=== PATIENT | male | born 1955 | race Caucasian/White ===

== ENCOUNTER 2022-02-05 06:47 | Emergency (ER) | payer OTHER ==
[2022-02-05 07:20] VITALS: BP 153/99; PULSE 81; RESP 19; TEMP 97.6; BMI 29.1
[2022-02-05] MEDS ORDERED: LIDOCAINE 5% TOPICAL PATCH TP ONE (08:35)
[2022-02-05] MEDS ORDERED: LIDOCAINE 5% TOPICAL PATCH ONE (08:53)
[2022-02-05] MEDS ORDERED: diazePAM 5 MG TABLET PO ONE (09:19)
[2022-02-05] MEDS ORDERED: DEXAMETHASONE SOD PHOSPHATE 4 MG/1 ML VIAL IM ONE (09:19)
[2022-02-05] MEDS ORDERED: DEXAMETHASONE SOD PHOSPHATE 4 MG/1 ML VIAL ONE (09:40)
[2022-02-05] MEDS ORDERED: diazePAM 5 MG TABLET ONE (09:40)
[2022-02-05] MEDS ORDERED: LIDOCAINE PATCH REMOVAL MC ONE (22:00)
== END 2022-02-05 12:00 | disposition home or self-care (01) ==
LOC: JERFT 06:47 → JER 06:47
PROC: 3E023GC Introduction of Other Therapeutic Substance into Muscle, Percutaneous Approach (ICD-10-PCS; principal; 2022-02-05)
DX: G54.8 Other nerve root and plexus disorders (principal)
CPT/HCPCS: 72131-TC; 74018-TC-FY; 99284-25

== ENCOUNTER 2022-02-13 04:06 | Day surgery (SDC) | payer OTHER ==
[2022-02-12 10:22] VITALS: BMI 28.5
[2022-02-13] MEDS ORDERED: LIDOCAINE HCL/PF 1% SDV 5ML VIAL ONE ×2 (07:17→07:33)
[2022-02-13] MEDS ORDERED: DEXAMETHASONE SOD PHOSPHATE 4 MG/1 ML VIAL ONE ×2 (07:17→07:33)
[2022-02-13] MEDS ORDERED: DEXAMETHASONE SOD PHOSPHATE 10 MG/1 ML VIAL ONE ×2 (07:17→09:35)
[2022-02-13 10:47] VITALS: RESP 20
[2022-02-13] MEDS ORDERED: LIDOCAINE HCL 1%, 10 MG/ML (50 mL VIAL) NR ONE (11:39)
[2022-02-13] MEDS ORDERED: DEXAMETHASONE SOD PHOSPHATE 10 MG/1 ML VIAL IVPUSH ONE (11:39)
[2022-02-13] MEDS ORDERED: IOHEXOL 180 MG/1 ML ML IJ ONE (11:40)
[2022-02-13] MEDS ORDERED: ACETAMINOPHEN 500 MG TABLET (FP) PO ONE ×2 (12:08→13:00)
[2022-02-13] MEDS ORDERED: ACETAMINOPHEN 500 MG TABLET (FP) ONE (12:08)
[2022-02-13 13:35] VITALS: BP 127/83; PULSE 87; TEMP 98.2
== END 2022-02-13 13:15 | disposition home or self-care (01) ==
LOC: JASU-SURG 04:06
PROVIDERS: ATTEND Pain Medicine Pain Medicine
PROC: 3E0R33Z Introduction of Anti-inflammatory into Spinal Canal, Percutaneous Approach (ICD-10-PCS; 2022-02-13)
PROC: B01BYZZ Fluoroscopy of Spinal Cord using Other Contrast (ICD-10-PCS; 2022-02-13)
PROC: 3E0R3BZ Introduction of Anesthetic Agent into Spinal Canal, Percutaneous Approach (ICD-10-PCS; principal; 2022-02-13 11:30)
DX: M54.16 Radiculopathy, lumbar region (principal); M48.061 Spinal stenosis, lumbar region without neurogenic claudication
CPT/HCPCS: 76000-TC-FY; J1100

== ENCOUNTER 2022-03-06 04:06 | Day surgery (SDC) | payer OTHER ==
[2022-03-03 16:43] VITALS: BMI 28.5
[~2022-03-06 04:06] MED LIST: DEXAMETHASONE SOD PHOSPHATE 10 MG/1 ML VIAL IVPUSH ONE; DEXAMETHASONE SOD PHOSPHATE 4 MG/1 ML VIAL IVPUSH ONE; IOHEXOL 180 MG/1 ML ML IJ ONE; LIDOCAINE 1% P/F 10 MG/ML VIAL INF ONE
[2022-03-06] MEDS ORDERED: DEXAMETHASONE SOD PHOSPHATE 10 MG/1 ML VIAL ONE (07:19)
[2022-03-06] MEDS ORDERED: DEXAMETHASONE SOD PHOSPHATE 4 MG/1 ML VIAL ONE ×2 (07:19→12:08)
[2022-03-06] MEDS ORDERED: LIDOCAINE HCL/PF 1% SDV 5ML VIAL ONE (07:19)
[2022-03-06] MEDS ORDERED: LIDOCAINE 1% P/F 10 MG/ML VIAL INF ONE (12:26)
[2022-03-06] MEDS ORDERED: IOHEXOL 180 MG/1 ML ML IJ ONE (12:27)
[2022-03-06] MEDS ORDERED: DEXAMETHASONE SOD PHOSPHATE 10 MG/1 ML VIAL IM ONE (12:28)
[2022-03-06 13:06] VITALS: BP 142/84; PULSE 78; RESP 72; TEMP 18
== END 2022-03-06 13:06 | disposition home or self-care (01) ==
LOC: JASU-SURG 04:06
PROVIDERS: ATTEND Pain Medicine Pain Medicine
PROC: 3E0R3BZ Introduction of Anesthetic Agent into Spinal Canal, Percutaneous Approach (ICD-10-PCS; 2022-03-06)
PROC: 3E0R33Z Introduction of Anti-inflammatory into Spinal Canal, Percutaneous Approach (ICD-10-PCS; principal; 2022-03-06 12:15)
DX: M54.16 Radiculopathy, lumbar region (principal); M48.061 Spinal stenosis, lumbar region without neurogenic claudication
CPT/HCPCS: 76000-TC-FY; J1100

== ENCOUNTER 2022-04-17 04:11 | Day surgery (SDC) | payer OTHER ==
[2022-04-14 12:09] VITALS: BMI 29.0
[~2022-04-17 04:11] MED LIST changes: -DEXAMETHASONE SOD PHOSPHATE 4 MG/1 ML VIAL IVPUSH ONE; -LIDOCAINE 1% P/F 10 MG/ML VIAL INF ONE; +LIDOCAINE 1% P/F 10 MG/ML VIAL PNB ONE
[2022-04-17] MEDS ORDERED: SODIUM CHLORIDE 0.9% P/F 10 ML VIAL IJ ONE (07:50)
[2022-04-17 10:31] VITALS: RESP 20
[2022-04-17] MEDS ORDERED: IOHEXOL 180 MG/1 ML ML IJ ONE (10:54)
[2022-04-17] MEDS ORDERED: DEXAMETHASONE SOD PHOSPHATE 10 MG/1 ML VIAL IVPUSH ONE (10:54)
[2022-04-17] MEDS ORDERED: LIDOCAINE 1% P/F 10 MG/ML VIAL PNB ONE (10:54)
[2022-04-17 15:30] VITALS: BP 137/84; PULSE 75; TEMP 97.9
== END 2022-04-17 11:30 | disposition home or self-care (01) ==
LOC: JASU-SURG 04:11
PROVIDERS: ATTEND Pain Medicine Pain Medicine
PROC: 3E0R3BZ Introduction of Anesthetic Agent into Spinal Canal, Percutaneous Approach (ICD-10-PCS; 2022-04-17)
PROC: 3E0R33Z Introduction of Anti-inflammatory into Spinal Canal, Percutaneous Approach (ICD-10-PCS; principal; 2022-04-17 11:30)
DX: M54.16 Radiculopathy, lumbar region (principal)
CPT/HCPCS: 76000-TC-FY; J1100

== ENCOUNTER 2023-09-24 10:18 | Observation (INO) | payer OTHER ==
[2023-09-24 10:41] VITALS: BMI 28.5
[2023-09-24] MEDS ORDERED: ACETAMINOPHEN INJECTION 100 ML IVPB ONE (11:38)
[2023-09-24] MEDS ORDERED: diazePAM 5 MG TABLET ONE (11:39)
[2023-09-24] MEDS: ACETAMINOPHEN 1000 MG/100 ML BAG IVPB ONE (12:07)
[2023-09-24] MEDS: diazePAM 5 MG TABLET PO ONE (12:08)
[2023-09-24 12:20] LABS: BASO % 0.5 % (0-2.0); EOS % 0.2 % (0-4.5); HEMATOCRIT 46.8 % (35.4-49); LYMPH % 18.8 % (8-40); MCH 28.2 pg (25.7-33.7); MCHC 34.2 g/dl (32.0-35.9); MEAN CELL VOLUME 82.6 fl (80-96); MEAN PLT VOLUME 9.4 fl (7.5-11.1); MONO % 6.2 % (3.8-10.2); NEUT % 74.3 % (42.8-82.8); PLATELET COUNT 260 10^3/uL (134-434); RBC 5.66 M/mm3 (4.00-5.60); RDW 14.4 % (11.9-15.9); WHITE BLOOD COUNT 13.5 K/mm3 (4.0-10.0)
[2023-09-24 12:34] LABS: POTASSIUM 3.7 mmol/L (3.5-5.1)
[2023-09-24 12:37] LABS: ALBUMIN 4.3 g/dl (3.4-5.0); CALCIUM 9.9 mg/dL (8.5-10.1)
[2023-09-24 12:38] LABS: BLOOD UREA NITROGEN 16.4 mg/dL (7-18)
[2023-09-24 12:42] LABS: BILIRUBIN,TOTAL 1.2 mg/dL (0.2-1); TOT PROT 8.2 g/dl (6.4-8.2)
[2023-09-24] MEDS ORDERED: KETOROLAC TROMETHAMINE 30 MG/1 ML VIAL ONE (12:45)
[2023-09-24] MEDS: KETOROLAC TROMETHAMINE 30 MG/1 ML VIAL IVPUSH ONE (12:58)
[2023-09-24 13:49] LABS: INR 1.03 (0.83-1.09); PROTHROMBIN TIME (PATIENT) 11.8 SEC (9.7-13.0)
[2023-09-24 13:52] LABS: ACTIVATED PTT 24.7 SECONDS (25.2-36.5)
[2023-09-24] MEDS: PREGABALIN 25 MG CAPSULE PO SCH (20:16)
[2023-09-24] MEDS: GABAPENTIN 300 MG CAPSULE PO SCH (20:21)
[2023-09-24] MEDS: ACETAMINOPHEN 1000 MG/100 ML BAG IVPB PRN (23:04)
[2023-09-25 07:49] LABS: BASO % 0.8 % (0-2.0); EOS % 0.9 % (0-4.5); LYMPH % 19.9 % (8-40); MCHC 33.3 g/dl (32.0-35.9); MEAN PLT VOLUME 9.7 fl (7.5-11.1); MONO % 8.2 % (3.8-10.2); NEUT % 70.2 % (42.8-82.8); PLATELET COUNT 222 10^3/uL (134-434); RBC 5.36 M/mm3 (4.00-5.60); WHITE BLOOD COUNT 11.6 K/mm3 (4.0-10.0)
[2023-09-25 07:57] LABS: POTASSIUM 3.9 mmol/L (3.5-5.1)
[2023-09-25 07:59] LABS: ALBUMIN 3.9 g/dl (3.4-5.0); CALCIUM 9.5 mg/dL (8.5-10.1)
[2023-09-25 08:00] LABS: BLOOD UREA NITROGEN 19.5 mg/dL (7-18); MAGNESIUM 2.2 mg/dL (1.8-2.4)
[2023-09-25 08:04] LABS: BILIRUBIN,TOTAL 1.1 mg/dL (0.2-1); PHOSPHOROUS 3.7 mg/dL (2.5-4.9); TOT PROT 7.4 g/dl (6.4-8.2)
[2023-09-25] MEDS: LOSARTAN POTASSIUM 50 MG TABLET PO SCH (09:45)
[2023-09-25] MEDS: ROSUVASTATIN CA 20 MG TABLET PO SCH (09:45)
[2023-09-25] MEDS ORDERED: ENOXAPARIN NA (PORCINE) 40 MG/0.4 ML DISP.SYRIN SQ SCH (10:00)
[2023-09-25] MEDS: KETOROLAC TROMETHAMINE 30 MG/1 ML VIAL IM ONE (12:11)
[2023-09-25] MEDS: CYCLOBENZAPRINE HCL 5 MG TABLET PO PRN (14:54)
[2023-09-25 18:29] VITALS: RESP 20
[2023-09-25] MEDS: KETOROLAC TROMETHAMINE 15 MG/ML VIAL IVPUSH PRN (21:10)
[2023-09-25] MEDS: diazePAM 5 MG TABLET PO PRN (22:25)
[2023-09-26 09:06] LABS: BASO % 0.6 % (0-2.0); EOS % 2.1 % (0-4.5); HEMATOCRIT 47.9 % (35.4-49); HEMOGLOBIN 16.2 GM/dL (11.7-16.9); LYMPH % 20.2 % (8-40); MCH 28.3 pg (25.7-33.7); MCHC 33.8 g/dl (32.0-35.9); MEAN CELL VOLUME 83.7 fl (80-96); MEAN PLT VOLUME 9.4 fl (7.5-11.1); MONO % 7.9 % (3.8-10.2); NEUT % 69.2 % (42.8-82.8); PLATELET COUNT 227 10^3/uL (134-434); RBC 5.73 M/mm3 (4.00-5.60); RDW 14.5 % (11.9-15.9); WHITE BLOOD COUNT 10.7 K/mm3 (4.0-10.0)
[2023-09-26 09:21] LABS: INR 0.97 (0.83-1.09); PROTHROMBIN TIME (PATIENT) 11.2 SEC (9.7-13.0)
[2023-09-26 09:22] LABS: ACTIVATED PTT 30.7 SECONDS (25.2-36.5)
[2023-09-26 09:25] LABS: POTASSIUM 3.9 mmol/L (3.5-5.1)
[2023-09-26 09:32] LABS: ALBUMIN 3.9 g/dl (3.4-5.0); BLOOD UREA NITROGEN 20.2 mg/dL (7-18); CALCIUM 9.5 mg/dL (8.5-10.1); MAGNESIUM 2.3 mg/dL (1.8-2.4)
[2023-09-26 09:35] LABS: PHOSPHOROUS 3.3 mg/dL (2.5-4.9)
[2023-09-26 09:37] LABS: BILIRUBIN,TOTAL 1.1 mg/dL (0.2-1); TOT PROT 7.7 g/dl (6.4-8.2)
[2023-09-26] MEDS: ACETAMINOPHEN 500 MG TABLET (FP) PO SCH (10:53)
[2023-09-26 11:58] VITALS: BP 163/96; PULSE 82; TEMP 97.7
[2023-09-26] MEDS ORDERED: GABAPENTIN 300 MG CAPSULE PO SCH (14:00)
== END 2023-09-26 13:20 | disposition home or self-care (01) ==
LOC: JER 10:18 → JERBED 16:57 → J7W 19:20
PROVIDERS: ADMIT Internal Medicine; ATTEND Internal Medicine
PROC: 3E033NZ Introduction of Analgesics, Hypnotics, Sedatives into Peripheral Vein, Percutaneous Approach (ICD-10-PCS; principal; 2023-09-24)
PROC: 3E0333Z Introduction of Anti-inflammatory into Peripheral Vein, Percutaneous Approach (ICD-10-PCS; 2023-09-24)
PROC: 3E0233Z Introduction of Anti-inflammatory into Muscle, Percutaneous Approach (ICD-10-PCS; 2023-09-24)
DX: M54.10 Radiculopathy, site unspecified (principal); M51.9 Unspecified thoracic, thoracolumbar and lumbosacral intervertebral disc disorder; M99.63 Osseous and subluxation stenosis of intervertebral foramina of lumbar region; I10 Essential (primary) hypertension; E78.5 Hyperlipidemia, unspecified; M19.90 Unspecified osteoarthritis, unspecified site; R26.2 Difficulty in walking, not elsewhere classified; M79.605 Pain in left leg
CPT/HCPCS: 36415; 72100-TC-FY; 72148-TC; 72192-TC; 73502-TC-LT-FY; 80053; 83735; 84100; 85025; 85610; 85730; 86850; 86900; 86901; 97116-GP; 97162-GP; 99285-25; G0378; J0131

== ENCOUNTER 2023-09-30 04:30 | Day surgery (SDC) | payer OTHER ==
[2023-09-29 12:27] VITALS: BMI 28.5
[2023-09-30] MEDS ORDERED: LIDOCAINE HCL/PF 1% SDV 5ML VIAL ONE (07:17)
[2023-09-30] MEDS ORDERED: DEXAMETHASONE SOD PHOSPHATE 10 MG/1 ML VIAL ONE (07:17)
[2023-09-30 11:36] VITALS: RESP 18
[2023-09-30] MEDS: LIDOCAINE 1% P/F 10 MG/ML VIAL PNB ONE ×2 (12:17)
[2023-09-30] MEDS: IOHEXOL 180 MG/1 ML ML IJ ONE ×2 (12:17)
[2023-09-30] MEDS: DEXAMETHASONE SOD PHOSPHATE 10 MG/1 ML VIAL IVPUSH ONE ×2 (12:17)
[2023-09-30] MEDS ORDERED: ACETAMINOPHEN 500 MG TABLET (FP) PO PRN (13:10)
[2023-09-30 13:57] VITALS: BP 152/90; PULSE 78; TEMP 97.4
== END 2023-09-30 13:45 | disposition home or self-care (01) ==
LOC: JASU-SURG 04:30
PROVIDERS: ATTEND Pain Medicine Pain Medicine
PROC: 3E0R3BZ Introduction of Anesthetic Agent into Spinal Canal, Percutaneous Approach (ICD-10-PCS; 2023-09-30)
PROC: 3E0R33Z Introduction of Anti-inflammatory into Spinal Canal, Percutaneous Approach (ICD-10-PCS; principal; 2023-09-30 11:30)
DX: M48.061 Spinal stenosis, lumbar region without neurogenic claudication (principal); M54.16 Radiculopathy, lumbar region
CPT/HCPCS: 76000-TC-FY; J1100

== ENCOUNTER 2023-10-28 04:41 | Day surgery (SDC) | payer OTHER ==
[2023-10-25 12:16] VITALS: BMI 28.5
[2023-10-28] MEDS ORDERED: DEXAMETHASONE SOD PHOSPHATE 10 MG/1 ML VIAL ONE (07:33)
[2023-10-28] MEDS ORDERED: LIDOCAINE HCL/PF 1% SDV 5ML VIAL ONE (07:33)
[2023-10-28] MEDS: LIDOCAINE HCL 1% PRESERVATIVE FREE - 30ML VIAL IJ ONE (10:16)
[2023-10-28] MEDS: DEXAMETHASONE SOD PHOSPHATE 10 MG/1 ML VIAL IVPUSH ONE (10:16)
[2023-10-28 11:06] VITALS: BP 146/96; PULSE 65; RESP 16; TEMP 97.8
[2023-10-28] MEDS ORDERED: ACETAMINOPHEN 500 MG TABLET (FP) PO PRN (13:26)
== END 2023-10-28 11:19 | disposition home or self-care (01) ==
LOC: JASU-SURG 04:41
PROVIDERS: ATTEND Pain Medicine Pain Medicine
PROC: 3E0R3BZ Introduction of Anesthetic Agent into Spinal Canal, Percutaneous Approach (ICD-10-PCS; 2023-10-28)
PROC: 3E0R33Z Introduction of Anti-inflammatory into Spinal Canal, Percutaneous Approach (ICD-10-PCS; principal; 2023-10-28 10:00)
DX: M54.16 Radiculopathy, lumbar region (principal)
CPT/HCPCS: 76000-TC-FY; J1100